=== PATIENT | male | born 1975 | race Two or more races ===

== ENCOUNTER 2016-06-10 17:02 | Emergency (ER) | payer BC ==
--- NOTE | 2016-06-10 17:26 | ED Physician Chart ---
Chief Complaint/HPI - Patient Information Date Seen:: 06/10/16 Time Seen:: 17:15 Chief Complaint:: Fever for 3 days. History of Present Illness:: Brought in by his because of fever for about 3 days. Fever was up to 102F. Pt has had frontal sinus congestion. Cough with yellow phlegm. No dyspnea. Taking po well without N/V/D. No lightheadedness. Allergies:: Allergies Allergy/AdvReac Type Severity Reaction Status Date / Time No Known Allergies Allergy Verified 06/10/16 17:15 Vitals:: Vital Signs - 8 hr 06/10/16 17:02 Temp 100.6 F HR 121 RR 16 BP 140/77 O2 Sat % 97 Historian:: Patient Family MD/PCP:: Unknown LMP:: N/A Review:: Nurse's Note Reviewed Review of Systems - Review of Systems General/Constitutional: Fever, No chills, No weight loss, No weakness, No diaphoresis, No edema, No loss of appetite Skin: No skin lesions, No rash, No bruising Head: Headache (Frontal sinus pressure pain.) Eyes: No loss of vision, No pain, No diplopia ENT: No earache, Nasal drainage, Sore throat Neck: No neck pain, No swelling, No thyromegaly, No stiffness, No mass noted Cardio Vascular: No chest pain, No palpitations, No PND, No orthopnea, No edema Pulmonary: No SOB, Cough, Sputum, No wheezing GI: No nausea, No vomiting, No diarrhea, No pain, No melena, No hematochezia, No constipation, No hematemesis G/U: No dysuria, No frequency, No hematuria Musculoskeletal: No bone or joint pain, No back pain, No muscle pain Endocrine: No polyuria, No polydipsia Psychiatric: No prior psych history Hematopoietic: No bruising, No lymphadenopathy Allergic/Immuno: No urticaria, No angioedema Neurological: No syncope, No focal symptoms, No weakness, No paresthesia, No headache, No seizure, No dizziness, No confusion, No vertigo Past Medical History - Past Medical History Past Medical History: No significant medical hx Family History: Heart disease (parents.), Diabetes Melitus (mother) Social History: Non Smoker, No Alcohol, No Drug Use, , Employed, Other ( lives with his .) Employment:: pest control. Surgical History: None Psychiatricy History: None Medication: Reviewed Family Medical History - Family Member Mother Hx Family Hypertension: Yes Hx Family Diabetes: Yes Physical Exam - Physical Examination General/Constitutional: Awake, Well-developed, well-nourished, Alert, No distress, GCS 15, Non-toxic appearing, Ambulatory Other Gen/Cons comments:: Breathes comfortably, speaks clearly, and ambulates without difficulty. Head: Atraumatic Other Head comments:: Tenderness to percussion at frontal sinus regions. Eyes: Lids, conjuctiva normal Skin: Nl inspection, No rash, No skin lesions, No ecchymosis, Well hydrated, No lymphadenopathy ENMT: TM canals nl, Lips, teeth, gums nl, Oropharynx nl, Tonsils nl Other ENMT comments:: Trace light yellow nasal discharge and postnasal drip noticed. Neck: Nontender, Full ROM w/o pain, No JVD, No nuchal rigidity, No mass, No stridor Respiratory: Nl effort/Exclusion, Clear to Auscultation, No Wheeze/Rhonchi/Rales Cardio Vascular: RRR (with HR 92.), No murmur, gallop, rubs, NL S1 S2 GI: No tenderness/rebounding/guarding, No organomegaly, No hernia, Normal BS's, Nondistended, No mass/bruits, No McBurney tenderness Other GI comments:: Abdomen is obese but soft. Extremities: No tenderness or effusion, Full ROM, normal strength in all extremities, No edema, Normal digits & nails Neuro/Psych: Alert/oriented (oriented x 3), Judgement/insight normal, Mood normal, Normal gait, No focal deficits ED Septic Shock - . Is Septic Shock (SBP<90, OR Lactate>4 mmol\L) present?: No - <6hrs of presentation: Vital Signs: Vital Signs - 8 hr 06/10/16 17:02 Temp 100.6 F HR 121 RR 16 BP 140/77 O2 Sat % 97 Reassessment (Disposition) - Reassessment Reassessment:: 1743 Pt remains stable. Pt requests to go home now and does not want further observation/management in hospital. Aftercare instructions given. Reassessment Condition:: Improved - Diagnosis Diagnosis:: Acute frontal sinusitis, stable. - Aftercare/Follow up Instructions Aftercare/Follow-Up Instructions:: Refer to Discharge Instructions Notes:: Bedrest. Increase oral fluid. May take Tylenol and/or Motrin as directed as needed for fever or pain. May take Sudafed as directed. F/U with Dr. Haney or PCP of pt's choice in 2 days for recheck. Return to ER immediately if condition worsens or if any further questions/problems. Medication Prescribed:: Bactrim DS one tab po q12h for 14 days. D28 R-0 - Patient Disposition Discharge/Transfer:: Home Time:: 17:45 Condition at Disposition:: Stable, Improved
== END 2016-06-10 17:45 | disposition home or self-care (01) ==
LOC: ER 17:02
DX: J01.10 Acute frontal sinusitis, unspecified (principal)
CPT/HCPCS: Z7502